=== PATIENT | male | born 1990 | race Caucasian/White ===

== ENCOUNTER 2020-01-22 15:25 | Outpatient (CLI) | payer OTHER ==
--- NOTE | 2020-01-22 11:24 | SLEEP CARE CONSULTATION ---
Information from patient questionnaire entered by Eva Dougherty. I have reviewed and concur with the information entered by Eva Dougherty. This document represents the service I personally performed and the decisions made by me, Tracee Juárez MD, [facility]. History of Present Illness Service Date and Time: 01/22/2020 1100 Reason for Visit: New patient Chief Complaint: reports: Frequent awakenings at night, Other (Once a month awaking without being able to breathe and having to gasp for air.) Duration of Symptoms: 7 years Usual bedtime: 10 pm on weekdays, 11 pm on weekends Time it takes to fall asleep: 15 minutes Snores at night: Yes (only on back) Observed to quit breathing while asleep: No Sleeps alone due to snoring: No Number of times waking at night: 3-4 Reasons for waking at night: reports: Gasping for air (once a month), Other (no reason) Toss, Turn, or Twitch while sleeping: Yes Recalls having dreams: Yes Usually gets out of bed at: 5-6 am Feels refreshed in the morning: Yes (sometimes) Morning headache: No Sleepy or fatigued during the day: No Ever fallen asleep while driving: No Takes day naps: Yes Dreams during day naps: Yes (occasionally) Prior sleep studies: No Additional HPI information: I had the pleasure of seeing Mr. Vera today regarding the possibility of him having a sleep disorder. As you know, he is a 29 year old gentleman who complains of frequent awakenings and occasional nocturnal choking. The patient tells me that he normally goes to bed around 10 pm, and it takes him approximately 30 minutes to fall asleep. He has been told that he snores loudly and irregularly at night. He has never been observed to stop breathing in his sleep. His can still sleep in the same bed. He can recall waking up on the average of 3 times during the night. Most of the time he wakes up because of no apparent reason. He has awakened occasionally because of his own snoring, choking, and having to gasp for air. There is a lot of tossing and turning in his sleep. Generally he can recall having dreams. In the morning he usually gets up out of the bed around 5 a.m. not feeling refreshed nor rested. He usually does not have a morning headache. During the day he complains of feeling sleepy and fatigued. His score on [place] Sleepiness Scale is 5 out of 24. He has never fallen asleep while driving nor has had any accident due to sleepiness. He usually does not take naps during the day. He reports having impaired concentration during the day. - Parasomnia Symptoms Ever been unable to move upon waking from sleep: No Ever felt weak in the knees when startled or emotional: No Bothered by creepy, crawly, restless sensations in legs: No Problems with memory or concentration: No Subjective Initial [place] Sleepiness Scale score: 5 Past Medical History Past Medical History: reports: Anxiety, Other (S/P tonsillectomy) Social History The patient's occupation is a [employer]. Patient is and lives in [place]. Have you smoked in the past 12 months: No Alcohol use: Yes Alcohol amount and frequency: 1 drink 3 times a week Caffeine use: Yes Caffeine amount and frequency: 2 cups of coffee a day Family History Family history of sleep disordered breathing: Yes Family Hx Sleep Apnea: Father: Snoring, Grandparent: Snoring Allergies and Home Medications Drug allergies reviewed: Yes (NKDA) Home medication list reviewed: Yes (vitamins) Review of Systems Weight loss over past 5 years: 15 Cardiovascular: denies: high blood pressure, palpitations, chest pain, irregular heart rate or pulse, leg or foot swelling, have to sleep sitting up, other Respiratory: denies: shortness of breath, wheeze, sputum production, chronic cough, other Gastrointestinal: reports: heartburn, diarrhea Urinary: denies: incontinence, frequency, urgency, impotence, other Neurological: denies: headaches, seizure, head trauma, disorientation, speech dysfunction, gait or balance problems, fainting or unconsciousness, other Psychiatric: reports: anxiety Ear/Nose/Throat: reports: wisdom teeth removed Endocrine: denies: thyroid disease, history of goiter, sluggishness, too hot or cold, excessive thirst, increased appetite, increased urination, unexplained weakness, other Musculoskeletal: reports: back pain Physical Exam Height: 6 ft 2 in Weight: 171 lb (according to the patient) Body Mass Index: 21.9 BMI Classification: Healthy weight Impression and Plan IMPRESSION: 1. Obstructive Sleep Apnea-Hypopnea Syndrome, as suggested by history of loud and irregular snoring, frequent awakenings during the night, nocturnal choking, unrefreshed sleep, cognitive impairment, and daytime hypersomnolence. Pathophysiology of sleep-disordered breathing was discussed. I recommend proceeding to polysomnography to confirm the diagnosis and to assess severity. If he has significant sleep disordered breathing, a manual CPAP titration study will also be performed to find the optimal treatment pressure. I informed the patient of what the sleep studies involve and after some discussion, he agreed to proceed. Plan: 1. Schedule polysomnography + possibly a manual CPAP titration study 2. Avoid long distance driving or when feeling sleepy. 3. Avoid alcohol, sedative and muscle relaxant around bedtime. 4. Return in 1 to 2 weeks after the study to discuss results and initiate therapy. Follow up with Sleep Care in: 1-2 months Visit Type: Telehealth Video Video Type: VSporto Patient Location: Home Location of Provider: Office Patient agrees and consents to this telehealth visit type: Yes Patient agrees to have their insurance billed: Yes Time Spent with Patient (minutes): 12 Provider Statement: I spent 100% of the Telehealth Video Call with the patient with greater than 50% spent counseling the patient and coordination of care.
== END 2020-01-22 15:26 | disposition home or self-care (01) ==
LOC: SC 15:25
PROVIDERS: ATTEND Internal Medicine Pulmonary Disease
DX: R06.83 Snoring (principal); G47.8 Other sleep disorders; G47.10 Hypersomnia, unspecified; R53.83 Other fatigue; R41.89 Other symptoms and signs involving cognitive functions and awareness

== ENCOUNTER 2020-03-12 20:35 | Outpatient (CLI) | payer OTHER | END 2020-03-12 20:36 | disposition home or self-care (01) | LOC: SC 20:35 | PROVIDERS: ATTEND Internal Medicine Pulmonary Disease | DX: G47.33 Obstructive sleep apnea (adult) (pediatric) (principal); R00.1 Bradycardia, unspecified | CPT/HCPCS: 95810 ==

== ENCOUNTER 2020-06-26 08:59 | Outpatient (CLI) | payer OTHER ==
--- NOTE | 2020-06-26 08:56 | SLEEP CARE CONSULTATION ---
Information from patient questionnaire entered by Eva Dougherty. I have reviewed and concur with the information entered by Eva Dougherty. This document represents the service I personally performed and the decisions made by me, Shawna Keenan, RN, MSN, [facility]. History of Present Illness Service Date and Time: 06/26/2020 0859 Previous diagnosis: Other (RDI) AHI: 6.2 (in 2019) Reason for follow up: other (2 month - positional therayp) Prior sleep studies: Yes Year and Where: 2019 - [facility] sleep Type of Sleep Study: Polysomnography HPI additional information: Patient is here for follow up on positional therapy for mild obstructive sleep apnea. He used it for one month and spouse noted no snoring. He did not feel any dif ference in refreshment of sleep or energy. However, his [place] Sleepiness Scale was 5 at initial consultation. He has not worn the sleep noodle belt the past month and has not awakened on his back as before use of sleep noodle. His spouse is still not hearing any snore which was noted only on his back. He is not more refreshed but feels it is due to waking at 4am instead of 6am alarm time. He is unable to return to sleep and stays in bed and tosses and turns. He looks at clock if unable to return to sleep and if too early tries to return to sleep but if right before then he gets up. He feels he generally has poor sleep quality. He wonders part of this is due to anxiety but then has difficulty going to sleep if not anxious. He completed a sleep diary in November and December and at that time sometimes woke to snoring. He would get 5-7 hours of sleep and wake 3 times a night. Cats will also awaken him when notice he is trying to get back to sleep and this is still happening. Bedtime regular 10pm and and wake time 4-6am now. At the sleep diary time, bedtime was 10:15-10:45. He tried cats out of room and still woke up about 4am. This has been ongoing for years He followed with PCP in regard to bradycardia and informed due to his running regularly. NO further evaluation. Subjective Initial [place] Sleepiness Scale score: 5 (in 2019) Current [place] Sleepiness Scale score: 6 Allergies and Home Medications Known drug allergies: No Home medication list reviewed: Yes (multivitamin) Review of Systems Review of systems same as previous: Yes Physical Exam Blood Pressure: 120/70 Cuff size: regular Heart Rate: 48 (regular - patient is a runner) Height: 6 ft 2 in Impression and Plan 1. Obstructive Sleep Apnea-Hypopnea Syndrome, mild, with good treatment compliance of positonal therapy with resolution of snoring only but no better refreshment of sleep. He has no daytimes sleepiness symptoms. He does not want to pursue any other treatment for his apnea at this time such as oral appliance or CPAP therapy. He can consider oral appliance if wants to start sleeping on his back. Patient's apnea severity and rationale for treatment to reduce apnea, improve sleep quality and reduce cardiovascular and cerebrovascular events was reviewed. 2. Insomnia, that appears to be chronic and due to unknown, things on mind, anxiety and cats. Patient advised of the importance of leaving the room if unable to fall back to sleep quickly. In addition, it is important to have a relaxing ritual about 30-60 minutes before bedtime to allow the mind/body transition from an active day to sleep. Electronics should be avoided 1-2 hours before bedtime as the bright light can reduce the endogenous melatonin and the activity of the computer, tablet, cell phone etc can be alerting. TV is okay but content needs to be relaxing and the brightness dimmed. A warm bath or shower is another way to assist transition to sleep. In addition, it is important to have a sleep environment conducive to sleep such as a comfortable bed, comfortable temperature and quiet. The alarm clock should be set and the face covered to prevent clock watching if awakened during the night. Knowing the time can cause anxiety and increase alertness and thinking about sleep time and preparation for the next day. Instead if awakened after sleep, the patient is to position for comfort or use bathroom and return to sleep. If unable to go to sleep in an estimated 20 minutes of more, it is advised to leave the bedroom and engage in a quiet activity until sleepy enough to return to bed. If unable to sleep due to things on the mind, it is recommended to write out the concerns or list to do as a release then return to a quiet activity until sleepy enough to return to bed. This is to be repeated as often as necessary to associate the bed with sleep and not frustration to get to sleep. [facility] How to Sleep Better pamphlet given and reviewed. A sleep diary will be completed for the next 2 weeks to assist implementation of recommendations and for further evaluation of sleep concerns. Cats need to be removed from bedroom as seem to awaken patient more if they find him awake community affairs manager. It is advised that they can be soothed while out of bedroom before bedtime and when out of bedroom if unable to fall asleep. If he discovers he is awaking more due to anxiety he can speak to his PCP about the benefit of a counselor. * Continue positional therapy * Implement methods to reduce insomnia * sleep diary - 2weeks * Return for follow up in 1-2 months , or sooner if concerns arise Visit Type: In Office Time Spent with Patient (minutes): 40 Provider Statement: I spent 100% of the Face to Face Visit with the patient with greater than 50% spent counseling the patient and coordination of care.
[2020-06-26 09:13] VITALS: BP 120/70
== END 2020-06-26 09:00 | disposition home or self-care (01) ==
LOC: SC 08:59
PROVIDERS: ATTEND Nurse Practitioner Family
DX: G47.33 Obstructive sleep apnea (adult) (pediatric) (principal); G47.00 Insomnia, unspecified
CPT/HCPCS: 99212; 99215